=== PATIENT | male | born 1970 | race Caucasian/White ===

== ENCOUNTER 2018-12-02 17:21 | Emergency (ER) | payer BC, OTHER ==
[~2018-12-02] VITALS: Ht 175.3 cm; Wt 68.7 kg
[~2018-12-02 17:21] MED LIST: ACHD5005 PO; ALPR1T PO; DOCU-143 PO; LEVO500T69 PO; TRAM50TA2 PO
--- NOTE | 2018-12-02 17:34 | NUR ---
PT TO CT DEPT VIA COT WITH THIS NURSE
[2018-12-02 17:43] LABS: HEMOGLOBIN 13.6 G/DL (13.3-17.7); MEAN PLATELET VOLUME 10.4 FL (7.4-10.4); RED CELL DISTRIBUTION WIDTH 12.9 % (10.0-14.5); WHITE BLOOD COUNT 11.9 10^3/uL (4.3-11.0)
--- NOTE | 2018-12-02 17:57 | Diagnostic Imaging Report ---
PROCEDURE: CT head and CT cervical spine without contrast. TECHNIQUE: Multiple contiguous axial images were obtained through the brain and cervical spine without the use of intravenous contrast. Sagittal and coronal reformations through the cervical spine were then performed. Auto Exposure Controls were utilized during the CT exam to meet ALARA standards for radiation dose reduction. INDICATION: Fall off ladder striking the head, lacerations. COMPARISON: No previous. CT HEAD: No pneumocephalus. There is no depressed calvarial fracture deformity or intracerebral hemorrhage. There is no paranasal sinus air-fluid level. There is no hydrocephalus. No focal or generalized cerebral edema. No mass or mass effect apparent. Some punctate superficial debris in the scalp at the level of the forehead. No metallic retained foreign body. There is some preseptal left-sided periorbital and supraorbital soft tissue swelling. CT CERVICAL SPINE: Body heights are maintained. Alignment is anatomic. The spinal canal is patent. The bony skull base is intact. There is no cervical fracture or paravertebral hematoma. Thoracic inlet and visualized pulmonary apices are unremarkable. IMPRESSION: 1. Soft tissue injury, anteriorly, however no calvarial deformity, hemosinus or evidence for intracranial hemorrhage. 2. Cervical CT is unremarkable. Dictated by: Dictated on workstation # [id number]
[2018-12-02] MEDS ORDERED: HOLD METFORMIN - RECEIVED CONTRAST 20 ML VIAL IV SCH (18:00)
[2018-12-02] MEDS ORDERED: CATHETER FLUSH 10 ML SYR IV PRN (18:00)
[2018-12-02] MEDS ORDERED: NS 100 ML (IVPB) BAG IV ONE (18:00)
[2018-12-02] MEDS ORDERED: IOHEXOL 350 MG/ML 100 ML (OMNIPAQUE 350) VIAL IV ONE (18:00)
[2018-12-02 18:01] LABS: ALANINE AMINOTRANSFERASE 22 U/L (0-55); ALBUMIN 3.6 GM/DL (3.2-4.5); ALKALINE PHOSPHATASE 65 U/L (40-136); BILIRUBIN,DIRECT 0.2 MG/DL (0.0-0.3); BILIRUBIN,INDIRECT 0.2 MG/DL; BILIRUBIN,TOTAL 0.4 MG/DL (0.1-1.0); BUN/CREATININE RATIO 22; CALCIUM 8.6 MG/DL (8.5-10.1); CARBON DIOXIDE 18 MMOL/L (21-32); CHLORIDE 113 MMOL/L (98-107); CREATININE SERUM 1.02 MG/DL (0.60-1.30); GFR ESTIMATED > 60; GLUCOSE 119 MG/DL (70-105); POTASSIUM 3.2 MMOL/L (3.6-5.0); SODIUM 143 MMOL/L (135-145); TOTAL PROTEIN 5.5 GM/DL (6.4-8.2)
[2018-12-02] MEDS ORDERED: diphenhydrAMINE 50 MG/ML INJ (BENADRYL) ONE (18:02)
[2018-12-02] MEDS ORDERED: FAMOTIDINE 20MG/2ML IV (PEPCID) ONE (18:03)
[2018-12-02] MEDS ORDERED: methylPREDNISolone 125 MG (Solu-MEDROL) VIAL ONE (18:03)
[2018-12-02] MEDS ORDERED: morphine INJ 10 MG/ML 1ML (SYR OR VIAL) IVP STA ×2 (18:08→19:09)
[2018-12-02] MEDS ORDERED: FAMOTIDINE 20MG/2ML IV (PEPCID) IVP ONE (18:15)
[2018-12-02] MEDS ORDERED: diphenhydrAMINE 50 MG/ML INJ (BENADRYL) IVP ONE (18:15)
[2018-12-02] MEDS ORDERED: methylPREDNISolone 125 MG (Solu-MEDROL) VIAL IVP ONE (18:15)
--- NOTE | 2018-12-02 18:19 | NUR ---
PT RETURNS FROM CT IN STABLE CONDITION
--- NOTE | 2018-12-02 18:22 | Diagnostic Imaging Report ---
INDICATION: Fall. FINDINGS: The lungs are clear. No chest wall fracture deformity, effusion, or pneumothorax. IMPRESSION: No acute-appearing abnormality. Dictated by: Dictated on workstation # [id number]
--- NOTE | 2018-12-02 18:26 | Diagnostic Imaging Report ---
PROCEDURE: CT chest, abdomen, and pelvis with contrast. TECHNIQUE: Multiple contiguous axial images were obtained through the chest, abdomen, and pelvis after the administration of intravenous contrast. Auto Exposure Controls were utilized during the CT exam to meet ALARA standards for radiation dose reduction. INDICATION: Fall. CHEST: No lung contusion, pneumothorax or hemothorax is demonstrated. There is some minimal basilar atelectasis. No fracture deformity. No mass or adenopathy. Intact aorta. ABDOMEN AND PELVIS: There is no hemoperitoneum. There is no free air. No bowel wall or mesenteric hematoma. There is no evidence for hepatosplenic laceration. There is no adrenal mass or hematoma. The pancreas is unremarkable. The kidneys are well-perfused and unobstructed. The bony structures of the abdomen and pelvis show no fracture deformity. IMPRESSION: No acute or posttraumatic sequelae identified at CT chest, abdomen or pelvis. Dictated by: Dictated on workstation # [id number]
--- NOTE | 2018-12-02 18:29 | Diagnostic Imaging Report ---
INDICATION: Fall. EXAMINATION: AP pelvis. FINDINGS: No contrast extravasation from the ureters or opacified urinary bladder which is midline. No pelvic fracture deformity. No dislocation. Markers from hernia repair project over the right lower quadrant. IMPRESSION: No acute or posttraumatic sequelae identified. Dictated by: Dictated on workstation # [id number]
--- NOTE | 2018-12-02 18:36 | Diagnostic Imaging Report ---
INDICATION: Traumatic deformity. EXAMINATION: Multiple views of the left wrist. FINDINGS: There is dorsal angulation of comminuted and impacted intra-articular distal radial fractures. The ulna appears intact, seen only on the lateral/obliquely oriented view. Irregularities of the lunate bone suspicious for fractures to that structure but may reflect superimposition of the proximal scaphoid pole overlying, as the lateral view positioning is limited by painful deformity and is not a true lateral. IMPRESSION: Dorsally angulated, impacted, comminuted, intra-articular distal radial fracture. Fracture is nondisplaced so the lunate bone could not be excluded. Dictated by: Dictated on workstation # [id number]
[2018-12-02] MEDS ORDERED: TETANUS,DIPTH,PERTUSS P/F (BOOSTRIX) 0.5 ML VIAL IM ONE (19:15)
[2018-12-02] MEDS ORDERED: LIDOCAINE/EPI 2% 1:100,00 (XYLOCAINE) 20 ML VIAL INJ ONE (19:15)
[2018-12-02 19:23] LABS: BILIRUBIN,URINE NEGATIVE (NEGATIVE); CLARITY,URINE CLEAR; COLOR,URINE YELLOW; GLUCOSE, URINE (UA) NEGATIVE (NEGATIVE); KETONES,URINE NEGATIVE (NEGATIVE); LEUKOCYTE ESTERASE ,URINE NEGATIVE (NEGATIVE); NITRITE,URINE NEGATIVE (NEGATIVE); PH,URINE 6 (5-9); PROTEIN,URINE 1+ (NEGATIVE); UROBILINOGEN,URINE NORMAL (NORMAL)
[2018-12-02 19:30] LABS: BACTERIA,URINE TRACE /HPF; SQUAMOUS EPITHELIAL CELL,UR RARE /HPF; WBC,URINE 0-2 /HPF
[2018-12-02 19:36] LABS: AMPHETAMINE SCREEN, URINE POSITIVE (NEGATIVE); BARBITURATE SCREEN URINE NEGATIVE (NEGATIVE); BENZODIAZEPINES SCREEN URINE NEGATIVE (NEGATIVE); CANNABINOID SCREEN, URINE POSITIVE (NEGATIVE); COCAINE SCREEN URINE NEGATIVE (NEGATIVE); METHADONE STAT NEGATIVE (NEGATIVE); METHAMPHETAMINE SCREEN URINE S POSITIVE (NEGATIVE); OPIATE SCREEN URINE POSITIVE (NEGATIVE); OXYCODONE STAT NEGATIVE (NEGATIVE); PROPOXYPHENE STAT NEGATIVE (NEGATIVE); TRICYCLIC ANTIDEPRESSANTS SCRE NEGATIVE (NEGATIVE)
[2018-12-02] MEDS ORDERED: LORazepam INJ 2 MG/ML (ATIVAN) VIAL ONE (19:45)
[2018-12-02] MEDS ORDERED: TRIM/SULFAMETH 160/800 (SEPTRA DS) TAB PO ONE (20:15)
[2018-12-02] MEDS ORDERED: fentaNYL INJECTION 100 MCG/2 ML AMP IVP ONE (20:15)
[2018-12-02] MEDS ORDERED: RX-HYDROCODONE/APAP 5/325 MG #4 TAB PK PO PRN (20:15)
--- NOTE | 2018-12-02 20:39 | ED Fall/Injury ---
General Chief Complaint: Trauma EMS/Air Arrival Activat Stated Complaint: FALL Source: patient, EMS Exam Limitations: no limitations History of Present Illness Date Seen by Provider: Dec 02, 2018 Time Seen by Provider: 17:25 Initial Comments This 48-year-old man is brought to the emergency room via EMS after falling approximately 4 feet off of a ladder. He was working in the yard and got up onto a [employer] ladder after having 2 or 3 shots of alcohol. He was using a pull sought to trim trees. His feet were about 4 feet off the ground when he fell. He fell forward injuring his face. He has a significant complex stellate laceration on the left forehead. He also has disfigurement and pain in the left wrist. He is alert and oriented but seems somnolent. He does not know when his last tetanus immunization was. There was no loss of consciousness. C-collar was applied by EMS in the field. Allergies and Home Medications Allergies Coded Allergies: iodine (Verified Allergy, Unknown, Hives, 12/02/18) Home Medications Alprazolam 1 Mg Tab, 1 MG PO PRN, (Reported) Docusate Sodium 100 Mg Capsule, 100 MG PO BID Prescribed by: NIRAJ LUCIO on 10/30/15 1153 Hydrocodone Bit/Acetaminophen 1 Each Tablet, 1 TAB PO Q4H PRN Prescribed by: NIRAJ LUCIO on 10/30/15 1153 Hydrocodone Bit/Acetaminophen 1 Tab Tab, 1 EACH PO Q4-6HR PRN for PAIN-MODERATE Prescribed by: DESTINEE SHEPHERD on 12/02/182046 Sulfamethoxazole/Trimethoprim 1 Each Tablet, 1 EACH PO BID Prescribed by: DESTINEE SHEPHERD on 12/02/182046 Patient Home Medication List Home Medication List Reviewed: Yes Review of Systems Review of Systems Constitutional: see HPI Eyes: No Symptoms Reported Ears, Nose, Mouth, Throat: no symptoms reported Respiratory: no symptoms reported Cardiovascular: no symptoms reported Gastrointestinal: no symptoms reported Genitourinary: no symptoms reported Musculoskeletal: see HPI Skin: see HPI Psychiatric/Neurological: See HPI Past Wwklwqx-Osnbxf-Fhqgwa Hx Past Med/Social Hx: Reviewed Nursing Past Med/Soc Hx Patient Social History Alcohol Use: Occasionally Uses Number of Drinks Today: 3 Alcohol Beverage of Choice: Vodka Recreational Drug Use: No Smoking Status: Current Everyday Smoker Type Used: Cigarettes Former Smoker, Quit: Oct 26, 2013 Immunizations Up To Date Tetanus Booster (TDap): Less than 5yrs Past Medical History Surgeries: Yes (RIGHT INGUINAL HERNIA, ORAL SURGERY) Respiratory: No Cardiac: No Neurological: No Reproductive Disorders: No Sexually Transmitted Disease: No HIV/AIDS: No Genitourinary: No Gastrointestinal: Yes (INGUINAL HERNIA) Musculoskeletal: No Endocrine: No Loss of Vision: Denies Hearing Impairment: Denies Cancer: No Psychosocial: Yes (SEVERE ANXIETY FROM THE HOSPITAL/DR'S OFFICES) Anxiety Integumentary: No Blood Disorders: No Adverse Reaction/Blood Tranf: No (N/A) Family Medical History No Pertinent Family Hx Physical Exam Vital Signs Vital Signs - First Documented 12/02/18 17:21 Temp 97.1 Pulse 68 Resp 18 B/P (MAP) 133/97 (109) Pulse Ox 96 O2 Delivery Nasal Cannula Capillary Refill : Height, Weight, BMI Height: 5'9.00" Weight: 151lbs. 9.0oz. 68.973200rg; 22.4 BMI Method:Stated General Appearance: WD/WN, moderate distress HEENT: PERRL/EOMI, other (there is a large laceration that is deep, complex, and stellate on the left forehead.) Neck: normal inspection, other (in c-collar) Cardiovascular: regular rate, rhythm, no edema, no murmur Respiratory: lungs clear, normal breath sounds, no respiratory distress, no accessory muscle use Gastrointestinal: normal bowel sounds, non tender, soft Extremities: no pedal edema, other (disfigurement of the radial aspect of the left wrist. 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, no motor/sensory deficits, alert, normal mood/affect, oriented x 3, other (somnolence noted, improving with time) Skin: normal color, warm/dry, other (see above) Procedures/Interventions Wound Location: Face Other Wound Location Left forehead Wound Length (cm): 7 Wound's Depth, Shape: irregular (stellate), bone, sub Q Wound Explored: contaminated Irrigated w/ Saline (ccs): 500 Betadine Prep?: Yes Anesthesia: Lidocaine w/ Epi Volume Anesthetic (ccs): 6 Suture: Prolene Suture Size: 4-0 Number of Sutures: 9 Sterile Dressing Applied?: No Progress Open wound was sprayed with lidocaine with epinephrine. Skin was then cleaned with alcohol and local anesthetic was injected. Wound was then irrigated with sterile saline and chlorhexidine. Debris was removed with tweezers and wound was further irrigated. Skin was then prepped with Betadine. Wound was carefully approximated with interrupted sutures of 5-0 Prolene. The wound was approximately 5 cm long with an additional 2-3 cm extension inferiorly. Splinting and Joint Reduction : Pre-Proc Neuro Vasc Exam: normal Post-Proc Neuro Vasc Exam: normal Progress Patient was treated with morphine and fentanyl prior to reduction. Distal radius fracture was reduced by this provider and a sugar tong splint was applied. Postreduction films demonstrated good alignment. Sensation and motor function in the fingers intact postreduction. Reduction Attempts: 1 Hand-Made Type: fiberglass Splint Application: Short Arm (sugar tong) Progress/Results/Core Measures Results/Orders Lab Results Laboratory Tests Test 12/02/18 17:32 12/02/18 19:18 Range/Units White Blood Count 11.9 H 4.3-11.0 10^3/uL Red Blood Count 4.23 L 4.35-5.85 10^6/uL Hemoglobin 13.6 13.3-17.7 G/DL Hematocrit 39 L 40-54 % Mean Corpuscular Volume 93 80-99 FL Mean Corpuscular Hemoglobin 32 25-34 PG Mean Corpuscular Hemoglobin Concent 35 32-36 G/DL Red Cell Distribution Width 12.9 10.0-14.5 % Platelet Count 259 130-400 10^3/uL Mean Platelet Volume 10.4 7.4-10.4 FL Sodium Level 143 135-145 MMOL/L Potassium Level 3.2 L 3.6-5.0 MMOL/L Chloride Level 113 H 98-107 MMOL/L Carbon Dioxide Level 18 L 21-32 MMOL/L Anion Gap 12 5-14 MMOL/L Blood Urea Nitrogen 22 H 7-18 MG/DL Creatinine 1.02 0.60-1.30 MG/DL Estimat Glomerular Filtration Rate > 60 BUN/Creatinine Ratio 22 Glucose Level 119 H 70-105 MG/DL Calcium Level 8.6 8.5-10.1 MG/DL Total Bilirubin 0.4 0.1-1.0 MG/DL Direct Bilirubin 0.2 0.0-0.3 MG/DL Indirect Bilirubin 0.2 MG/DL Aspartate Amino Transf (AST/SGOT) 15 5-34 U/L Alanine Aminotransferase (ALT/SGPT) 22 0-55 U/L Alkaline Phosphatase 65 40-136 U/L Total Protein 5.5 L 6.4-8.2 GM/DL Albumin 3.6 3.2-4.5 GM/DL Serum Alcohol 29 H <10 MG/DL Urine Color YELLOW Urine Clarity CLEAR Urine pH 6 5-9 Urine Specific [place] 1.010 L 1.016-1.022 Urine Protein 1+ H NEGATIVE Urine Glucose (UA) NEGATIVE NEGATIVE Urine Ketones NEGATIVE NEGATIVE Urine Nitrite NEGATIVE NEGATIVE Urine Bilirubin NEGATIVE NEGATIVE Urine Urobilinogen NORMAL NORMAL MG/DL Urine Leukocyte Esterase NEGATIVE NEGATIVE Urine RBC (Auto) NEGATIVE NEGATIVE Urine RBC NONE /HPF Urine WBC 0-2 /HPF Urine Squamous Epithelial Cells RARE /HPF Urine Crystals NONE /LPF Urine Bacteria TRACE /HPF Urine Casts PRESENT /LPF Urine Hyaline Casts 10-25 H /LPF Urine Mucus SMALL H /LPF Urine Culture Indicated NO Urine Opiates Screen POSITIVE H NEGATIVE Urine Oxycodone Screen NEGATIVE NEGATIVE Urine Methadone Screen NEGATIVE NEGATIVE Urine Propoxyphene Screen NEGATIVE NEGATIVE Urine Barbiturates Screen NEGATIVE NEGATIVE Ur Tricyclic Antidepressants Screen NEGATIVE NEGATIVE Urine Phencyclidine Screen NEGATIVE NEGATIVE Urine Amphetamines Screen POSITIVE H NEGATIVE Urine Methamphetamines Screen POSITIVE H NEGATIVE Urine Benzodiazepines Screen NEGATIVE NEGATIVE Urine Cocaine Screen NEGATIVE NEGATIVE Urine Cannabinoids Screen POSITIVE H NEGATIVE My Orders Orders - DESTINEE COLVIN MD Cbc No Diff (12/02/18 17:34) Basic Metabolic Panel (12/02/18 17:34) Liver Panel (12/02/18 17:34) Alcohol (12/02/18 17:34) Type And Screen (12/02/18 17:34) Ct Head/Cervical Spine Wo (12/02/18 17:34) Chest 1 View, Ap/Pa Only (12/02/18 17:34) End Tidal Co2 (12/02/18 17:34) Monitor-Rhythm Ecg Trace Only (12/02/18 17:34) Ed Iv/Invasive Line Start (12/02/18 17:34) Pelvis (12/02/18 17:34) Ct Chest/Abdomen/Pelvis W (12/02/18 17:34) Drug Screen Stat (Urine) (12/02/18 17:34) Ua Culture If Indicated (12/02/18 17:34) Wrist, Left, 3 Views Or More (12/02/18 17:36) Iohexol Injection (Omnipaque 350 Mg/Ml 1 (12/02/18 18:00) Received Contrast (Hold Metformin- Contr (12/02/18 18:00) Sodium Chloride Flush (Catheter Flush Sy (12/02/18 18:00) Ns (Ivpb) (Sodium Chloride 0.9% Ivpb Bag (12/02/18 18:00) Morphine Injection (Morphine Injection (12/02/18 18:08) Diphenhydramine Injection (Benadryl Inje (12/02/18 18:02) Famotidine Injection (Pepcid Injection) (12/02/18 18:03) Methylprednisolone Sod Succ (Solu-Medrol (12/02/18 18:03) Dipht,Pertuss(Acell),Tet Adult (Boostrix (12/02/18 19:15) Morphine Injection (Morphine Injection (12/02/18 19:09) Lidocaine/Epi 2% 1:100,000 (Xylocaine/Ep (12/02/18 19:15) Lorazepam Injection (Ativan Injection) (12/02/18 19:45) Sulfamethoxazole/Trimet Ds Tab (Bactrim (12/02/18 20:15) Rx-Hydrocodone/Apap 5-325 Mg (Rx-Vicodin (12/02/18 20:15) Fentanyl Injection (Sublimaze Injection (12/02/18 20:15) Wrist, Left, 2 Views (12/02/18 20:39) Medications Given in ED Vital Signs/I&O 12/02/18 12/02/18 17:21 21:32 Temp 97.1 98.2 Pulse 68 110 Resp 18 18 B/P (MAP) 133/97 (109) 153/89 (110) Pulse Ox 96 96 O2 Delivery Nasal Cannula Room Air 12/03/18 00:00 Intake Total 1400 ml Balance 1400 ml Progress Progress Note : Progress Note Type II trauma activation was paged. CT imaging was negative for injuries. There was a comminuted, angulated, intra-articular fracture of the distal left radius. This was discussed with Dr. Rios. It was reduced and splinted with opioid analgesia. Postreduction films showed good reduction in the angulation. A sugar tong splint was placed. The large deep laceration on the forehead was repaired with 4-0 Prolene suture after being thoroughly irrigated and debrided. Patient's cognitive status improved throughout the ER stay despite multiple doses of opioids. He was alert and able to walk around independently and safely without assistance. He was ultimately dismissed home for outpatient follow-up. Tetanus booster was administered. Prophylactic antibiotic therapy was started with Bactrim due to the deep in dirty nature of the wound. Diagnostic Imaging Diagonstic Imaging: Xray Plain Films/CT/US/NM/MRI: pelvis Comments NAME: CARLITOS CARVER MED REC#: [id number] PT STATUS: REG ER : 1970 PHYSICIAN: DESTINEE COLVIN MD ADMIT DATE: 12/02/18/ER Signed Date of Exam: 12/02/18 PELVIS INDICATION: Fall. EXAMINATION: AP pelvis. FINDINGS: No contrast extravasation from the ureters or opacified urinary bladder which is midline. No pelvic fracture deformity. No dislocation. Markers from hernia repair project over the right lower quadrant. IMPRESSION: No acute or posttraumatic sequelae identified. Dictated by: Dictated on workstation # [id number] Dict: 12/02/181816 Trans: 12/02/181843 Interpreted by: TIMI MANN Electronically signed by: TIMI MANN 12/02/181843 Reviewed: Reviewed by Me Diagonstic Imaging: Xray Plain Films/CT/US/NM/MRI: chest Comments Chest x-ray viewed by me and report reviewed. See report below: NAME: CARLITOS CARVER MED REC#: [id number] PT STATUS: REG ER : 1970 PHYSICIAN: DESTINEE COLVIN MD ADMIT DATE: 12/02/18/ER Signed Date of Exam: 12/02/18 CHEST 1 VIEW, AP/PA ONLY INDICATION: Fall. FINDINGS: The lungs are clear. No chest wall fracture deformity, effusion, or pneumothorax. IMPRESSION: No acute-appearing abnormality. Dictated by: Dictated on workstation # [id number] Dict: 12/02/181814 Trans: 12/02/181826 Interpreted by: TIMI MANN Electronically signed by: TIMI MANN 12/02/181826 Reviewed: Reviewed by Me Diagonstic Imaging: CT Plain Films/CT/US/NM/MRI: c-spine, head Comments NAME: CARLITOS CARVER [facility] REC#: [id number] PT STATUS: REG ER : 1970 PHYSICIAN: DESTINEE COLVIN MD ADMIT DATE: 12/02/18/ER Signed Date of Exam: 12/02/18 CT HEAD/CERVICAL SPINE WO PROCEDURE: CT head and CT cervical spine without contrast. TECHNIQUE: Multiple contiguous axial images were obtained through the brain and cervical spine without the use of intravenous contrast. Sagittal and coronal reformations through the cervical spine were then performed. Auto Exposure Controls were utilized during the CT exam to meet ALARA standards for radiation dose reduction. INDICATION: Fall off ladder striking the head, lacerations. COMPARISON: No previous. CT HEAD: No pneumocephalus. There is no depressed calvarial fracture deformity or intracerebral hemorrhage. There is no paranasal sinus air-fluid level. There is no hydrocephalus. No focal or generalized cerebral edema. No mass or mass effect apparent. Some punctate superficial debris in the scalp at the level of the forehead. No metallic retained foreign body. There is some preseptal left-sided periorbital and supraorbital soft tissue swelling. CT CERVICAL SPINE: Body heights are maintained. Alignment is anatomic. The spinal canal is patent. The bony skull base is intact. There is no cervical fracture or paravertebral hematoma. Thoracic inlet and visualized pulmonary apices are unremarkable. IMPRESSION: 1. Soft tissue injury, anteriorly, however no calvarial deformity, hemosinus or evidence for intracranial hemorrhage. 2. Cervical CT is unremarkable. Dictated by: Dictated on workstation # [id number] Dict: 12/02/181746 Trans: 12/02/181826 Interpreted by: TIMI MANN Electronically signed by: TIMI MANN 12/02/181826 Reviewed: Reviewed by Me Diagonstic Imaging: CT Plain Films/CT/US/NM/MRI: chest, abdomen, pelvis Comments CT chest, abdomen and pelvis viewed by me and report reviewed. See report below: NAME: CARLITOS CARVER MED REC#: [id number] PT STATUS: REG ER : 1970 PHYSICIAN: DESTINEE COLVIN MD ADMIT DATE: 12/02/18/ER Signed Date of Exam: 12/02/18 CT CHEST/ABDOMEN/PELVIS W PROCEDURE: CT chest, abdomen, and pelvis with contrast. TECHNIQUE: Multiple contiguous axial images were obtained through the chest, abdomen, and pelvis after the administration of intravenous contrast. Auto Exposure Controls were utilized during the CT exam to meet ALARA standards for radiation dose reduction. INDICATION: Fall. CHEST: No lung contusion, pneumothorax or hemothorax is demonstrated. There is some minimal basilar atelectasis. No fracture deformity. No mass or adenopathy. Intact aorta. ABDOMEN AND PELVIS: There is no hemoperitoneum. There is no free air. No bowel wall or mesenteric hematoma. There is no evidence for hepatosplenic laceration. There is no adrenal mass or hematoma. The pancreas is unremarkable. The kidneys are well-perfused and unobstructed. The bony structures of the abdomen and pelvis show no fracture deformity. IMPRESSION: No acute or posttraumatic sequelae identified at CT chest, abdomen or pelvis. Dictated by: Dictated on workstation # [id number] Dict: 12/02/181814 Trans: 12/02/181826 Interpreted by: TIMI MANN Electronically signed by: TIMI MANN 12/02/181826 Diagonstic Imaging: Xray Plain Films/CT/US/NM/MRI: other (left wrist) Comments Left wrist x-ray viewed by me and report reviewed. See report below: NAME: CARLITOS CARVER MED REC#: [id number] PT STATUS: REG ER : 1970 PHYSICIAN: DESTINEE COLVIN MD ADMIT DATE: 12/02/18/ER Signed Date of Exam: 12/02/18 WRIST, LEFT, 3 VIEWS OR MORE INDICATION: Traumatic deformity. EXAMINATION: Multiple views of the left wrist. FINDINGS: There is dorsal angulation of comminuted and impacted intra-articular distal radial fractures. The ulna appears intact, seen only on the lateral/obliquely oriented view. Irregularities of the lunate bone suspicious for fractures to that structure but may reflect superimposition of the proximal scaphoid pole overlying, as the lateral view positioning is limited by painful deformity and is not a true lateral. IMPRESSION: Dorsally angulated, impacted, comminuted, intra-articular distal radial fracture. Fracture is nondisplaced so the lunate bone could not be excluded. Dictated by: Dictated on workstation # [id number] Dict: 12/02/181816 Trans: 12/02/181843 Interpreted by: TIMI MANN Electronically signed by: TIMI MANN 12/02/181843 Diagonstic Imaging: Xray Plain Films/CT/US/NM/MRI: other (postreduction left wrist) Comments Postreduction left wrist x-ray viewed by me and report reviewed. See report below: NAME: CARLITOS CARVER MED REC#: [id number] PT STATUS: REG ER : 1970 PHYSICIAN: DESTINEE COLVIN MD ADMIT DATE: 12/02/18/ER Signed Date of Exam: 12/02/18 WRIST, LEFT, 2 VIEWS INDICATION: Traumatic deformity. EXAMINATION: Two views of the left wrist were obtained. FINDINGS: There has been marked improvement in dorsal angulation of comminuted impacted intra-articular distal radial fracture post closed reduction. No adverse interval development. Lateral view shows the lunate to be intact. The previous lucency was probably superimposition of bony structures and an obliquely oriented film. IMPRESSION: Substantial improvement in alignment of the distal radial intra-articular and impacted fractures with no adverse development of the lunate and remaining carpus appears intact. Dictated by: Dictated on workstation # [id number] Dict: 12/02/182109 Trans: 12/02/182118 Interpreted by: TIMI MANN Electronically signed by: TIMI MANN 12/02/182118 Departure Impression Primary Impression: Laceration of face Qualified Codes: S01.81XA - Laceration without foreign body of other part of head, initial encounter Additional Impressions: Fracture, radius, distal Qualified Codes: S52.502A - Unspecified fracture of the lower end of left radius, initial encounter for closed fracture Fall from ladder Qualified Codes: W11.XXXA - Fall on and from ladder, initial encounter Positive urine drug screen Hypokalemia Allergy to contrast media (used for diagnostic x-rays) Disposition: HOME, SELF-CARE Condition: Improved Departure-Patient Inst. Decision time for Depature: 20:30 Referrals: KORIN SOLIMAN MD (PCP) Primary Care Physician Patient Instructions: Laceration Repair With Stitches (DC), SPLINT CARE, Wrist Fracture (DC) Add. Discharge Instructions: Use hydrocodone as prescribed for pain. Avoid use of NSAID medications such as ibuprofen or naproxen as they may delay bone healing in initial treatment of fractures. Elevation on a soft surface and icing in 20 minute intervals should help with pain and swelling. Keep your arm in the splint and sling. Contact Dr. Rios's office on Tuesday morning and arrange follow-up. Monitor your wound for signs of infection such as increasing redness, increasing swelling, puslike drainage, or fever. Return to care promptly if you notice these symptoms. Starting tomorrow you may shower and allow soapy water to run over your wound. Do not scrub directly over the sutures. Return in about 10 days to have the sutures removed. Complete your antibiotics as prescribed. Your potassium is a little low today. Please eat and drink some items high in potassium such as citrus fruits and juices, bananas, watermelon, etc. Eat a well-balanced diet. Since you had hives after receiving iodine contrast, please report iodine as an allergy in any future healthcare encounters. All discharge instructions reviewed with patient and/or family. Voiced unde rstanding. Scripts Sulfamethoxazole/Trimethoprim (Bactrim Ds Tablet) 1 Each Tablet 1 EACH PO BID, #14 TAB Prov: DESTINEE COLVIN MD 12/02/18 Hydrocodone Bit/Acetaminophen (Hydrocodone/Acetaminophen 5/325mg Tablet) 1 Tab Tab 1 EACH PO Q4-6HR PRN for PAIN-MODERATE MDD 10, #30 TAB Prov: DESTINEE COLVIN MD 12/02/18 Copy Copies To 1: JAMSHID RIOS MD Copies To 2: KORIN SOLIMAN MD, JOSHUA T MD Dec 02, 2018 20:39
[2018-12-02] MEDS ORDERED: ACHD5005 PO (20:47)
[2018-12-02] MEDS ORDERED: SULF1TAB35 PO (20:47)
--- NOTE | 2018-12-02 21:15 | Diagnostic Imaging Report ---
INDICATION: Traumatic deformity. EXAMINATION: Two views of the left wrist were obtained. FINDINGS: There has been marked improvement in dorsal angulation of comminuted impacted intra-articular distal radial fracture post closed reduction. No adverse interval development. Lateral view shows the lunate to be intact. The previous lucency was probably superimposition of bony structures and an obliquely oriented film. IMPRESSION: Substantial improvement in alignment of the distal radial intra-articular and impacted fractures with no adverse development of the lunate and remaining carpus appears intact. Dictated by: Dictated on workstation # [id number]
[2018-12-02 21:32] VITALS: BP 153/89
== END 2018-12-02 21:32 | disposition home or self-care (01) ==
LOC: EDUNIT# 17:21 → ER 17:23
DX: S52.502A Unspecified fracture of the lower end of left radius, initial encounter for closed fracture (principal); S01.81XA Laceration without foreign body of other part of head, initial encounter; E87.6 Hypokalemia; R82.5 Elevated urine levels of drugs, medicaments and biological substances; F41.9 Anxiety disorder, unspecified; F17.210 Nicotine dependence, cigarettes, uncomplicated; Z91.041 Radiographic dye allergy status; Z98.890 Other specified postprocedural states; W11.XXXA Fall on and from ladder, initial encounter; Y92.096 Garden or yard of other non-institutional residence as the place of occurrence of the external cause
CPT/HCPCS: 11730; 25605; 29105; 36415; 70450; 71045; 71260; 72125; 72170; 73100; 73110; 74177; 80048; 80076; 80306; 80320; 81000; 85027; 86850; 86900; 86901; 90715; 93041

== ENCOUNTER 2018-12-13 08:41 | Emergency (ER) | payer BC ==
[~2018-12-13] VITALS: Ht 172.7 cm; Wt 72.6 kg
[~2018-12-13 08:41] MED LIST changes: +SULF1TAB35 PO
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
--- OUTSIDE RECORDS SUMMARY | 2018-12-13 08:46 | XMS REPORT | Continuity of Care Document ---
Author Author [facility] Organization [facility] Address Unknown Phone Unavailable Care Team Providers Care Grocery Checker Name Role Phone KORIN SOLIMAN MD PP Insurance Providers Payer Name Policy Number Subscriber Name Relationship [employer] [id number] Carlitos Roche 01 Self / Same As Patient Advance Directives Directive Response Recorded Date Advance Directives N 01/14/13 8:33am Organ Donor N 07/24/09 8:45am Problems No Known Problems or Medical conditions. Social History History Response Recorded Date/Time Alcohol Use Occasionally Uses 01/14/13 8:33am Recreational Drug Use N 01/14/13 8:33am Recent Foreign Travel N 01/07/13 10:38am Allergies, Adverse Reactions, Alerts Allergen Type Severity Reaction Last Updated No Known Drug Allergies Allergy Unknown 07/24/09 Medications Medication Dose Units Route Sig Qty Days Alprazolam (Xanax Tablet) 1 Mg PO PRN Levofloxacin (Levaquin 500 Mg) 1 Each PO DAILY 7 Tramadol Hcl 50 Mg PO Q4H PRN 10 Immunizations Name Given Type Tdap 01/07/13 A Response Recorded Date/Time Status not known Unknown Results No Known Relevant Diagnostic Tests, Laboratory Data and/or Discharge Summary. Procedures Procedure Code Date LAP ING HERNIA REPAIR INIT 23020 07/24/09 REMOVAL OF HYDROCELE 53086 07/24/09 Encounters Encounter Location Date/Time Departed Emergency Room [facility] 01/14/13 8:22am
--- OUTSIDE RECORDS SUMMARY | 2018-12-13 08:46 | XMS REPORT ---
Author Author SERG DO [facility] Address [address] [place] [address] Care Team Providers Care Trichologist Name Role Phone SERG DO Unavailable PROBLEMS Type Condition ICD9-CM Code QOH41-HG Code Onset Dates Condition Status SNOMED Code Problem Essential hypertension I10 Active [id number] ALLERGIES No Known Allergies SOCIAL HISTORY Never Assessed PLAN OF CARE VITAL SIGNS Weight 150 lbs 2016-07-01 Temperature 98.1 degrees Fahrenheit 2016-07-01 Heart Rate 80 bpm 2016-07-01 Respiratory Rate 16 2016-07-01 Blood pressure systolic 140 mmHg 2016-07-01 Blood pressure diastolic 102 mmHg 2016-07-01 MEDICATIONS Medication Instructions Dosage Frequency Start Date End Date Duration Status Hydrochlorothiazide 25 MG Orally Once a day 1 tablet in the morning 24h Jun, Active Xanax 1 MG Orally 3 times a day 1 tablet 8h Active RESULTS No Results PROCEDURES No Known procedures IMMUNIZATIONS No Known Immunizations MEDICAL (GENERAL) HISTORY Type Description Date Surgical History Hernia repair 2016 Hospitalization History surgery 2016
[2018-12-13 09:03] VITALS: BP 147/101
== END 2018-12-13 09:12 | disposition home or self-care (01) ==
LOC: EDUNIT# 08:41 → ER 08:43
DX: S01.81XD Laceration without foreign body of other part of head, subsequent encounter (principal); X58.XXXD Exposure to other specified factors, subsequent encounter

== ENCOUNTER 2020-12-11 01:03 | Emergency (ER) | payer SELFPAY ==
[~2020-12-11] VITALS: Ht 172 cm; Wt 72.5 kg
[~2020-12-11 01:03] MED LIST changes: -SULF1TAB35 PO; +SULF1TAB38 PO
--- NOTE | 2020-12-11 02:18 | ED EENT ---
History of Present Illness General Chief Complaint: Ear Problems Stated Complaint: LEFT EAR PAIN Source: patient Exam Limitations: no limitations (ONEYDA SY,MED STUDENT) History of Present Illness Date Seen by Provider: Dec 11, 2020 Time Seen by Provider: 02:30 Initial Comments Stephen Roche is a 50yo M with PMH of HTN and anxiety who presents with CC of left ear pain. On Tuesday he noticed reduced hearing out of his L ear, and visited urgent care. Ear wax was removed and he was prescribed Ciprofloxacin 0.3% otic. He has since had increasing pain that has began radiating towards the jaw, and this evening noted increased swelling adjacent to the tragus of the ear. He occasionally swims in pools. He denies fever, ear bleeding/discharge, chest pain, and n/v/d. Timing/Duration: gradual Severity: moderate Location: ear (L) Prearrival Treatment: prescription meds Associated Symptoms: change in hearing; No cough, No fever, No nasal congestion/drainage, No sore throat, No voice change (ONEYDA SY,MED STUDENT) Allergies and Home Medications Allergies Coded Allergies: iodine (Verified Allergy, Unknown, Hives, 12/02/18) Home Medications Alprazolam 1 Mg Tab, 1 MG PO PRN, (Reported) Cephalexin 500 Mg Tablet, 500 MG PO QID Prescribed by: DESTINEE SHEPHERD on 12/11/20243 Docusate Sodium 100 Mg Capsule, 100 MG PO BID Prescribed by: NIRAJ LUCIO on 10/30/15 115 Hydrocodone Bit/Acetaminophen 1 Each Tablet, 1 TAB PO Q4H PRN Prescribed by: NIRAJ LUCIO on 10/30/15 1153 Hydrocodone Bit/Acetaminophen 1 Tab Tab, 1 EACH PO Q4-6HR PRN for PAIN-MODERATE Prescribed by: DESTINEE SHEPHERD on 12/02/182046 Sulfamethoxazole/Trimethoprim 1 Each Tablet, 1 EACH PO BID Prescribed by: DESTINEE SHEPHERD on 12/02/182046 Sulfamethoxazole/Trimethoprim 1 Each Tablet, 1 EACH PO BID Prescribed by: DESTINEE SHEPHERD on 12/11/20 024 Patient Home Medication List Home Medication List Reviewed: Yes (DESTINEE COLVIN MD) Review of Systems Review of Systems Constitutional: No chills, No fever Eyes: No Symptoms Reported Ears: See HPI Nose: no symptoms reported Mouth: no symptoms reported Throat: no symptoms reported Respiratory: no symptoms reported Cardiovascular: no symptoms reported Gastrointestinal: no symptoms reported Musculoskeletal: no symptoms reported Skin: see HPI Neurological: Anxiety Hematologic/Lymphatic: No Symptoms Reported Immunological/Allergic: no symptoms reported (ONEYDA SY MED STUDENT) Past Xouxclu-Jsmqdd-Ftoery Hx Patient Social History Tobacco Use?: Yes Tobacco type used: Cigarettes Substance use?: Yes Substance type: Marijuana Alcohol Use?: Yes Alcohol type: Beer Alcohol Frequency: Couple times a week (ONEYDA SY MED STUDENT) Tobacco Use?: Yes Smoking Status: Current Everyday Smoker Alcohol Use?: Yes (DESTINEE COLVIN MD) Immunizations Up To Date Tetanus Booster (TDap): Less than 5yrs Influenza Vaccine Up-to-Date: Yes; Up-to-Date (ONEYDA SY MED STUDENT) Past Medical History Surgeries: Yes (RIGHT INGUINAL HERNIA, ORAL SURGERY) Respiratory: No Cardiac: No Neurological: No Reproductive Disorders: No Sexually Transmitted Disease: No HIV/AIDS: No Genitourinary: No Gastrointestinal: Yes (INGUINAL HERNIA) Musculoskeletal: No Endocrine: No Loss of Vision: Denies Hearing Impairment: Denies Cancer: No Psychosocial: Yes (SEVERE ANXIETY FROM THE HOSPITAL/DR'S OFFICES) Anxiety Integumentary: No Blood Disorders: No Adverse Reaction/Blood Tranf: No (N/A) (ONEYDA SY MED STUDENT) Family Medical History No Pertinent Family Hx (ONEYDA SY MED STUDENT) Physical Exam Vital Signs Vital Signs - First Documented 12/11/20 01:18 Temp 36.9 Pulse 98 Resp 18 B/P (MAP) 152/107 (122) Pulse Ox 97 O2 Delivery Room Air (DESTINEE COLVIN MD) Height, Weight, BMI Height: 5'8.00" Weight: 160lbs. 9.0oz. 72.113255bd; 21.09 BMI Method:Stated (ONEYDA SY,DEENA STUDENT) General Appearance: mild distress Eyes: bilateral eye normal inspection, bilateral eye EOMI Ears: left ear tenderness, left ear other (Canal edema prohibits visualization of the TM. Tenderness and edema anterior to the ear without discrete abscess) Nose: normal inspection Neck: normal inspection Cardiovascular: regular rate, rhythm, no edema, no murmur Respiratory: lungs clear, normal breath sounds, no respiratory distress Neurologic/Psychiatric: slot manager II-XII nml as tested, no motor/sensory deficits, alert, oriented x 3, other (somnolent) Skin: normal color, warm/dry (DESTINEE COLVIN MD) Procedures/Interventions Suture Size: 4-0 (ONEYDA SY,MED STUDENT) Progress/Results/Core Measures Results/Orders My Orders Orders - DESTINEE COLVIN MD Sulfamethoxazole/Trimet Ds Tab (Bactrim (12/11/20 02:45) Cephalexin Capsule (Keflex Capsule) (12/11/20 02:45) Rx-Hydrocodone/Apap 5-325 Mg (Rx-Vicodin (12/11/20 02:45) (DESTINEE COLVIN MD) Vital Signs/I&O (DESTINEE COLVIN MD) Progress Progress Note : Progress Note Patient was seen and examined. He has worsening otitis externa despite using his eardrops. The majority of the canal and the TM cannot be visualized due to edema. Ear wick was placed and was soaked with his Cipro drops. He was given oral doses of Keflex and Bactrim. Oral antibiotics were prescribed. A take- home bottle of hydrocodone was provided. (DESTINEE COLVIN MD) Departure Impression Primary Impression: Otitis externa Qualified Codes: H60.502 - Unspecified acute noninfective otitis externa, left ear Additional Impression: Cellulitis of left ear Disposition: 01 HOME, SELF-CARE Condition: Improved Departure-Patient Inst. Decision time for Depature: 02:40 (DESTINEE COLVIN MD) Referrals: NO,LOCAL PHYSICIAN (PCP/Family) Primary Care Physician Patient Instructions: Outer Ear Infection, Cellulitis (Skin Infection), Adult ED Add. Discharge Instructions: Use ibuprofen 600 mg every 6 hours as needed for primary pain control. Add either Tylenol or hydrocodone for pain not controlled by ibuprofen. Complete your antibiotics as prescribed in addition to your eardrops. When you use each dose of eardrops, pulled the old ear wick out and replace it. Drip the antibiotic directly onto the ear wick. Follow-up with your primary care provider next week for reevaluation. Call with questions or concerns. Return to the ER if you have worsening symptoms including fevers over 100 degrees. All discharge instructions reviewed with patient and/or family. Voiced understanding. Scripts Sulfamethoxazole/Trimethoprim (Bactrim Ds Tablet) 1 Each Tablet 1 EACH PO BID, #20 TAB Prov: DESTINEE COLVIN MD 12/11/20 Cephalexin (Cephalexin) 500 Mg Tablet 500 MG PO QID, #40 TAB Prov: DESTINEE COLVIN MD 12/11/20 Medical Student Attestation and Attending Note: I have personally interviewed and examined this patient along with Javier Sy, MS4. I have reviewed student documentation including history, physical, and assessments. I agree with the documentation except where otherwise noted. (DESTINEE COLVIN MD) ONEYDA SY,MED STUDENT Dec 11, 2020 02:17 DESTINEE COLVIN MD Dec 11, 2020 02:43
[2020-12-11] MEDS ORDERED: SULF1TAB38 PO (02:44)
[2020-12-11] MEDS ORDERED: CEPH500T PO (02:44)
[2020-12-11] MEDS ORDERED: CEPHALEXIN 250 MG (KEFLEX) CAP PO ONE (02:45)
[2020-12-11] MEDS ORDERED: TRIM/SULFAMETH 160/800 (SEPTRA DS) TAB PO ONE (02:45)
[2020-12-11 03:07] VITALS: BP 144/98
== END 2020-12-11 03:24 | disposition home or self-care (01) ==
LOC: EDUNIT# 01:03 → ER 01:08
DX: H60.92 Unspecified otitis externa, left ear (principal); H60.12 Cellulitis of left external ear; F41.9 Anxiety disorder, unspecified; I10 Essential (primary) hypertension; F17.210 Nicotine dependence, cigarettes, uncomplicated; Z79.899 Other long term (current) drug therapy